=== PATIENT | male | born 1950 | race Caucasian/White ===

== ENCOUNTER 2017-11-09 05:37 | Observation (INO) | payer OTHER ==
[2017-11-09] MEDS ORDERED: NS 500 ML IV ONE (05:44)
--- NOTE | 2017-11-09 05:45 | EDPHY ---
H & P HPI/ROS: HPI CHIEF COMPLAINT: Shortness of breath, chest discomfort, fatigue with exertion HISTORY OF PRESENT ILLNESS: This patient very pleasant 67-year-old male, he is otherwise healthy, does not take blood pressure medication he presents emergency room with complaints of when he exerts himself he gets fatigued very easily and shortness of breath and sometimes gets bilateral shoulder discomfort. 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 He flies monthly back and forth. He typically works there for 3 weeks and then has a to 9 days off here in the [place] in resides in [place]. He noticed while he was over injury pain hand that at times when he would exert himself you become fatigued early, shortness of breath, and sometimes gets bilateral shoulder discomfort no real chest pain. He reports to me that during a shift in the emergency room in [facility] he went outside to run for 5 min and then came back in to immediately get an EKG. When he did this EKG was very abnormal with significant ST depression in V3 V4 V5 and V6. Additionally T-wave inversions were seen in lead to 3 and AVF. He was able to produce this EKG. The EKG was dated 10/31/2017 at 2:22 p.m.. This was his EKG done in [place] in his emergency room. He decided come the emergency room as he want to have evaluation for his abnormal EKG and easily fatigued with exertion. Upon arrival to the emergency room he has no chest pain or shortness of breath and has no complaints. Past Medical History: Denies medical history, he does take a statin. And recently over the last few days he has been taking baby aspirin. 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 Denies daily use drugs alcohol tobacco Family History: Denies pertinent family history ROS REVIEW OF SYSTEMS: A comprehensive 10 point review of systems is otherwise negative aside from elements mentioned in the history of present illness. Exam Constitutional appears well nontoxic, triage nursing summary reviewed, vital signs reviewed, awake/alert. Eyes normal conjunctivae and sclera, EOMI, PERRLA. HENT normal inspection, atraumatic, moist mucus membranes, no epistaxis, neck supple/ no meningismus, no raccoon eyes. Respiratory clear to auscultation bilaterally, normal breath sounds, no respiratory distress, no wheezing. Cardiovascular rate normal, regular rhythm, no murmur, no edema, distal pulses normal. Gastrointestinal soft, non-tender, no rebound, no guarding, normal bowel sounds, no distension, no pulsatile mass. Genitourinary no CVA tenderness. Musculoskeletal no midline vertebral tenderness, full range of motion, no calf swelling, no tenderness of extremities, no meningismus, good pulses, neurovascularly intact. Skin pink, warm, & dry, no rash, skin atraumatic. Neurologic awake, alert and oriented x 3, AAOx3, moves all 4 extremities equally, motor intact, sensory intact, CN II-XII intact, normal cerebellar, normal vision, normal speech. Psychiatric normal mood/affect. Heme/Lymph/Immune no lymphadenopathy. 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 Re-evaluation: Patient be given full-dose aspirin here. EKG interpretation by me on record in [facility] system. Impression time of EKG 5:49 a.m., this is sinus rhythm rate of [address] depression or ST elevation. No significant T-wave abnormalities. Unremarkable resting EKG. ED x-ray chest one view: Negative for acute cardiopulmonary disease. 0642: This patient's troponin is negative. D-dimer is negative. EKG is nonischemic. Patient receive full-dose aspirin. Patient be admitted to the hospitalist service for further evaluation and for cardiology to be consulted. Source: Patient Constitutional: Initial Vital Signs Heart Rate 66 11/09/17 05:40 Respiratory Rate 18 11/09/17 05:40 O2 Sat (%) 97 11/09/17 05:40 O2 Delivery Mode Room Air Allergies/Adverse Reactions: No Known Allergies Allergy (Unverified 11/09/17 05:56) Home Medications: Medication Instructions Recorded Aspirin [Aspirin 81mg (*)] 81 mg PO DAILY 11/09/17 Atorvastatin Calcium [Lipitor 10 10 mg PO DAILY 11/09/17 mg (*)] Multivitamins [Multivitamin (*)] 1 each PO DAILY 11/09/17 Zolpidem Tartrate [Ambien 10 mg] 10 mg PO HS PRN 11/09/17 Medical Decision Making - Diagnostics Imaging Results: Imaging Impressions Chest X-Ray 11/09/17 05:44 Impression: No acute findings in the chest. - Data Points Laboratory Results: Laboratory Results 11/09/17 05:45 11/09/17 05:45 Medications Given: Carvedilol (Coreg) 3.125 mg PO BIDMEAL MONICA Stop: 05/08/18 17:59 Last Admin: 11/09/17 17:16 Dose: 3.125 mg Ondansetron HCl (Zofran Odt) 4 mg PO Q4HRS PRN PRN Reason: Nausea/Vomiting, Use 1st Stop: 05/08/18 12:21 Last Admin: 11/09/17 18:27 Dose: 4 mg Discontinued Medications Aspirin Buffered (Aspirin Ec) 325 mg PO EDNOW ONE Stop: 11/09/17 06:01 Last Admin: 11/09/17 06:04 Dose: 325 mg Diazepam (Valium) 5 mg PO ONCALL ONE Stop: 11/09/17 13:14 Last Admin: 11/09/17 13:22 Dose: 5 mg Diphenhydramine HCl (Benadryl) 25 mg PO ONCALL ONE Stop: 11/09/17 13:14 Last Admin: 11/09/17 13:22 Dose: 25 mg Famotidine (Pepcid) 20 mg PO ONCALL ONE Stop: 11/09/17 13:14 Last Admin: 11/09/17 13:22 Dose: 20 mg Sodium Chloride (Ns) 500 mls @ 1,000 mls/hr IV EDNOW ONE PRN Reason: Protocol Stop: 11/09/17 06:13 Last Admin: 11/09/17 06:03 Dose: 1,000 mls Sodium Chloride (Ns) 1,000 mls @ 0 mls/hr IV ONCALL ONE PRN Reason: TKO Stop: 11/09/17 13:14 Last Admin: 11/09/17 16:29 Dose: Not Given Ticagrelor (Brilinta) 180 mg PO ONCE ONE Stop: 11/09/17 14:35 Last Admin: 11/09/17 15:14 Dose: Not Given Departure - Departure Disposition: [facility] Acute Clinical Impression: Abnormal EKG, MILLIGAN (dyspnea on exertion) Condition: Fair
--- NOTE | 2017-11-09 05:51 | CPEKG ---
Heart Rate: 62 RR Interval: 968 P-R Interval: 156 QRSD Interval: 86 QT Interval: 428 QTC Interval: 435 P [place]: 76 QRS [place]: 34 T Wave [place]: 38 EKG Severity - NORMAL ECG - EKG Impression: SINUS RHYTHM Electronically Signed By: Payal Barnhart 11-Nov-2017 22:42:20
[2017-11-09 05:56] LABS: PLATELET COUNT 207 10^3/uL (150-400)
[2017-11-09] MEDS ORDERED: ASPIRIN EC 325 MG TAB PO ONE (06:00)
[2017-11-09] MEDS ORDERED: ASPIRIN 81 MG CHEWABLE TAB ONE (06:03)
[2017-11-09 06:05] LABS: CREATINE KINASE 86 IU/L (0-224); INR 0.95 (0.83-1.16); PROTIME(PATIENT) 12.9 SEC (12.0-15.0)
--- NOTE | 2017-11-09 10:49 | ASMTCMCOM ---
CM Note CM Note Notes: 11/09/2017 Case Management Note Reviewed chart. There are no case management d/c needs identified d/t pt age, marital status, employment status and activity levels prior to admission. There are no PT or OT evals ordered at this time. Case Management d/c poc: anticipating independent with follow up as directed. Case Management available if needs change. Date Signed: 11/09/2017 10:49 AM Electronically Signed By:Tg Montero RN
[2017-11-09] MEDS ORDERED: ACETAMINOPHEN 325 MG TAB PO PRN (12:22)
[2017-11-09] MEDS ORDERED: LORazepam 0.5 MG TAB PO PRN (12:22)
[2017-11-09] MEDS ORDERED: ONDANSETRON 4 MG/2 ML VIAL IVP PRN (12:22)
[2017-11-09] MEDS ORDERED: ONDANSETRON DISINTEGRATING 4 MG TAB PO PRN (12:22)
[2017-11-09] MEDS ORDERED: NON-FORMULARY NEW DRUG (Zolpidem Tartrate [Ambien 10 Mg] 10 MG) PO PRN (12:24)
[2017-11-09] MEDS ORDERED: ZOLPIDEM TARTRATE 5 MG TAB PO PRN (12:28)
--- NOTE | 2017-11-09 12:42 | PDPROPOC ---
Sedation Plan of Care Sedation Plan of Care: vital signs stable, mental status noted, patient educated of risks, benefits, alternatives, patient can tolerate sedation ASA Classification: ASA 2 Planned drugs: fentanyl, midazolam Mallampati Score: Class 1 Mallampati Reference Image: Patient passed 3-3-2 rule?: Yes
--- NOTE | 2017-11-09 12:43 | PDHPUP ---
History & Physical Update H&P update statement: This history and physical update is based on an assessment of the patient which was completed after admission or registration (within 24 hours), but prior to the surgery/procedure. H&P update: H&P reviewed & patient examined, no change in patient's condition since H&P completed
[2017-11-09] MEDS ORDERED: diphenhydrAMINE 25 MG CAP PO ONE ×2 (12:56→13:13)
[2017-11-09] MEDS ORDERED: FAMOTIDINE 20 MG TAB ONE (12:56)
[2017-11-09] MEDS ORDERED: DIAZEPAM 5 MG TAB ONE (12:57)
[2017-11-09] MEDS ORDERED: MIDAZOLAM 2 MG/2 ML VIAL ONE ×2 (13:07→14:01)
[2017-11-09] MEDS ORDERED: fentaNYL 100 MCG/2 ML INJ ONE ×2 (13:07→14:01)
[2017-11-09] MEDS ORDERED: LIDOCAINE 1% 300 MG/30 ML SDV ONE (13:07)
[2017-11-09] MEDS ORDERED: IOPAMIDOL (ISOVUE-370) 150 ML BTL IV ONE ×2 (13:07→13:51)
[2017-11-09] MEDS ORDERED: FAMOTIDINE 20 MG TAB PO ONE (13:13)
[2017-11-09] MEDS ORDERED: DIAZEPAM 5 MG TAB PO ONE (13:13)
[2017-11-09] MEDS ORDERED: NS 1,000 ML IV ONE (13:13)
[2017-11-09] MEDS ORDERED: NITROGLYCERIN 1,500 MCG/15 ML VIAL MISC ONE (13:48)
[2017-11-09] MEDS ORDERED: BIVALIRUDIN 250 MG/5 ML VIAL IV ONE (13:48)
[2017-11-09] MEDS ORDERED: TICAGRELOR 90 MG TAB ONE (14:10)
[2017-11-09] MEDS ORDERED: NITROGLYCERIN 0.4 MG BTL SL PRN (14:34)
[2017-11-09] MEDS ORDERED: TEMAZEPAM 15 MG CAP PO PRN (14:34)
[2017-11-09] MEDS ORDERED: HYDROCODONE/APAP 5/325 TAB PO PRN (14:34)
[2017-11-09] MEDS ORDERED: TICAGRELOR 90 MG TAB PO ONE (14:34)
[2017-11-09] MEDS ORDERED: ATROPINE SULFATE 1 MG/10 ML SYR IVP PRN (14:34)
[2017-11-09] MEDS ORDERED: OXYCODONE/APAP 5/325 TAB PO PRN (14:34)
--- NOTE | 2017-11-09 14:49 | CPEKG ---
Heart Rate: 50 RR Interval: 1200 P-R Interval: 160 QRSD Interval: 86 QT Interval: 476 QTC Interval: 435 P [place]: 69 QRS [place]: 21 T Wave [place]: 9 EKG Severity - NORMAL ECG - EKG Impression: SINUS RHYTHM Electronically Signed By: Mario Pérez 11-Nov-2017 13:03:13
--- NOTE | 2017-11-09 14:59 | CPIP ---
[f rep st] INVASIVE CARDIAC PROCEDURE DATE OF PROCEDURE: 11/09/2017 PROCEDURE: 1. Coronary angiography. 2. Left ventriculography. 3. Percutaneous coronary intervention of the left anterior descending coronary artery using Synergy drug-eluting stent. INDICATION: Crescendo angina. ACCESS: Patient was prepped and draped in the sterile fashion. 1% lidocaine was used to anesthetize the right inguinal region. A 6-Marshallese introducer sheath was placed selectively into the right commo n femoral artery via modified Seldinger technique. CORONARY ANGIOGRAPHY: A 6-Marshallese JL4 was advanced through the left main coronary artery and images o btained. The left main coronary artery bifurcated into an LAD and circumflex coronary arteries. The left main coronary artery appeared normal. The left anterior descending coronary artery gave rise t o three prominent diagonal branches. The left anterior descending coronary artery was diffusely dise ased. In the mid one segment of the vessel, there was a discreet 85% stenosis present. In the mid t wo segment of the vessel, there was a 30% to 40% stenosis present and in the distal vessel there is a 40% stenosis present. The diagonal arteries were free of any significant disease. The circumflex c oronary artery was nondominant. Circumflex coronary artery had a sequential 20% stenosis in the mid vessel. The circumflex coronary artery gave rise to two OM branches. The OM branches were free of a ny significant disease. A 6-Marshallese JR4 was advanced to the right coronary artery and images obtained . The right coronary artery is dominant. The right coronary artery had a mid 20% stenosis present. LEFT VENTRICULOGRAPHY: A 6-Marshallese pigtail catheter was advanced into the left ventricle and images o btained. Left ventricle was normal size and had normal systolic function with an estimated ejection fraction of 60%. COMPLICATIONS: None. CONCLUSIONS: 1. Single-vessel coronary artery disease involving the left anterior descending coronary artery. 2. Normal left ventricular systolic function. 3. Status post successful percutaneous coronary intervention of the left anterior descending coronar y artery using Synergy drug-eluting stents. /[id number]/MODL
--- NOTE | 2017-11-09 15:54 | GCON ---
[f rep st] CONSULTATION DATE OF CONSULTATION: 11/09/2017 CHIEF COMPLAINT: We have been asked by Dr. Storey to evaluate this patient with a chief complaint of chest pain. HISTORY OF PRESENT ILLNESS: The patient is a 67-year-old gentleman with coronary artery disease by c oronary artery calcium scoring, who presents with a chief complaint of chest pain. Patient was in hi s usual state of health until 3-4 weeks prior to admission, when he began to experience symptoms of p alpitations while exercising. Patient also noted a fairly significant decline in his exercise capaci ty and began to experience some mild discomfort in his shoulders bilaterally. 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 Patient has held off on his physical a ctivity since this time, and he presents for further evaluation. Patient currently denies symptoms o f chest pain as well as orthopnea and PND. He does report palpitations described as a skipped beat w hile exercising. The palpitations are not associated with symptoms of syncope or presyncope. PAST MEDICAL HISTORY: 1. Coronary artery disease by coronary artery calcium scoring. 2. Hyperlipidemia. MEDICATIONS: 1. Aspirin. 2. Atorvastatin. ALLERGIES: No known drug allergies. 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 He does not smoke an d denies problems with alcohol. FAMILY HISTORY: Noncontributory. REVIEW OF SYSTEMS: 10-point review of systems is negative, except as noted in the HPI. PHYSICAL EXAMINATION: GENERAL: Patient is resting comfortably in his bed. He does not appear to be in acute distress. VITAL SIGNS: Temperature is afebrile. Pulse 50, blood pressure 121/80, respira tory rate 16, SaO2 92% on room air. HEENT: Normocephalic, atraumatic. Extraocular muscles intact. NECK: No JVD. No bruits. LUNGS: Clear to auscultation bilaterally. CARDIOVASCULAR: Regular rat e and rhythm. S1, S2. No murmurs, rubs, or gallops appreciated. ABDOMEN: Soft, nontender. No hep atosplenomegaly. EXTREMITIES: No clubbing, cyanosis, or edema. SKIN: No evidence of rashes. NEUR O: Patient is awake, alert, and oriented x3. LABORATORY: White blood cell count is 6.84, hemoglobin 16.7, hematocrit 49.8, platelet count 207. S odium 146, potassium 4.3, chloride 104, CO2 28, BUN 20, creatinine 1.3. Troponin within normal limit s x1. D-dimer 0.43. INR 0.95. EKG demonstrates sinus rhythm, normal axis, and normal intervals. No acute ST or T-wave changes. ASSESSMENT AND PLAN: The patient is a 67-year-old gentleman with known coronary artery disease by co ronary artery calcium scoring, who presents with exertional dyspnea and shoulder discomfort concernin g for angina. His current EKG demonstrates no acute ST or T-wave changes. His initial troponin is w ithin normal limits. Reviewed options for risk stratification, including cardiac catheterization and stress testing. The patient wishes to pursue cardiac catheterization. Risks and benefits discussed . Will arrange to have this performed. /[id number]/MODL
[2017-11-09] MEDS: CARVEDILOL 3.125 MG TAB PO SCH (17:16)
[2017-11-10] MEDS: TICAGRELOR 90 MG TAB PO SCH ×2 (04:06→07:54)
[2017-11-10 04:50] VITALS: O2SAT 90
[2017-11-10 05:16] LABS: PLATELET COUNT 179 10^3/uL (150-400)
[2017-11-10] MEDS: CARVEDILOL 3.125 MG TAB PO SCH (07:54)
[2017-11-10] MEDS ORDERED: MULTIVITAMINS 1 EACH TAB PO SCH (09:00)
[2017-11-10] MEDS ORDERED: ASPIRIN EC 81 MG TAB PO SCH (09:00)
[2017-11-10] MEDS ORDERED: ASPIRIN 81 MG CHEWABLE TAB PO SCH (09:00)
[2017-11-10] MEDS ORDERED: ATORVASTATIN CALCIUM 10 MG TAB PO SCH (09:00)
--- NOTE | 2017-11-10 09:25 | CPEKG ---
Heart Rate: 64 RR Interval: 938 P-R Interval: 148 QRSD Interval: 86 QT Interval: 392 QTC Interval: 405 P [place]: 58 QRS [place]: 9 T Wave [place]: -7 EKG Severity - BORDERLINE ECG - EKG Impression: SINUS RHYTHM EKG Impression: BORDERLINE T ABNORMALITIES, INFERIOR LEADS Electronically Signed By: Mario Pérez 11-Nov-2017 13:03:06
[2017-11-10 12:19] VITALS: BP 122/82; PULSE 55; RESP 15; TEMP 98.2
--- NOTE | 2017-11-10 12:36 | SOAPPROG ---
[facility] Progress Note Assessment/Plan: 1. CAD - Pt presented with crescendo angina. Angiogram with 1VD and normal LVEF. Pt treated with PCI of mid LAD using synergy MARLO. Pt denies symptoms of angina and CHF. Ambulating with out difficulty. --> asa, brilinta, coreg, lisinopril, and lipitor --> Limited activity for 5 days --> F/u Dr. Leonard 2. HTN - Pts SBP is mildly elevated in the 110s to 150s --> Start lisinopril 5 mg daily 3. Hyperlipidemia - Pts LDL is 88 on intermittent lipitor 10 mg daily. --> Start scheduled lipitor 80 mg daily 4. Hematuria - Please see Dr. Storey's note. 11/10/17 12:36 Subjective: No chest pain No orthopnea or PND ambulating with out difficulty + hematuria last pm Objective: Vital Signs Temp Pulse Resp BP Pulse Ox 36.8 C 55 L 15 122/82 H 90 L 11/10/17 12:17 11/10/17 12:17 11/10/17 12:17 11/10/17 12:17 11/10/17 12:17 Laboratory Results 11/10/17 04:10 11/10/17 04:10 11/09/17 11/10/17 11/11/17 05:59 05:59 05:59 Intake Total 2080 Output Total 1225 Balance 855 PT 12.9 SEC (12.0-15.0) 11/09/17 05:45 INR 0.95 (0.83-1.16) 11/09/17 05:45 Physical Exam - Physical Exam General Appearance: alert, no apparent distress Respiratory: lungs clear Cardiac/Chest: regular rate, rhythm Extremities: other (No hematoma. + echymosis.), No pedal edema Neuro/Psych: alert, oriented x 3 ICD10 Worksheet Patient Problems: Problems Problem Status Onset Abnormal EKG Acute MILLIGAN (dyspnea on exertion) Acute
--- NOTE | 2017-11-10 12:55 | PDDCSUM ---
Discharge Summary Discharge Summary: DISCHARGE DIAGNOSES: -unstable angina pectoralis -coronary artery disease with 80+% stenosis of left anterior descending and mild disease elsewhere -stenting of the left anterior descending coronary disease, successful without complication -episode of gross hematuria following placement of coronary stent, likely related to anti-platelet and anticoagulant medications -hyperlipidemia -uncontrolled hypertension -left foot pain CONSULTANTS: Dr. 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 The symptoms are new in the last 2 weeks, always brought on by exertion, or is relieved by rest rapidly, and have increased in frequency and severity during the 2 weeks. He came into the ER where he had no heart failure, sinus rhythm, normal EKG and troponin. Is taken to the coronary angiography laboratory where he had a 80+% lesion of the left anterior descending which was successfully stented with a drug-eluting stent. Excellent flow after stent placement and no complications during the procedure. He did have some hematuria that lasted a few hours after the procedure without any pain and without any difficulty voiding his bladder. See below The patient has done well for cardiac standpoint since and he is stable for discharge from the hospital at this point. His LDL cholesterol was at 88 so his Lipitor was increased from 10-40 mg. His blood pressures have been a bit on the high side with systolics in the 150s and occasional high diastolic. Therefore he is started on Coreg and lisinopril as well. 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 He will follow up with Dr. Leonard in clinic in the next week. Due to the gross hematuria we did do a retroperitoneal ultrasound which showed no lesions of the kidneys or ureters. There is some mild thickening of part of the bladder wall which was nonspecific but felt to warrant further assessment with the urologist. I have recommended that the patient make an appointment to see urologist and I have given him the names and numbers of the local physicians in this community. He also mentioned a sharp pain below the left lateral malleolus in his foot that has been present intermittently over the last 2 months. It was not caused any injury that he is aware of, but it does give him quite a bit of pain at times with walking or jogging and makes him stop. Examination of his foot was unremarkable. An x-ray of the foot is ordered to look for any kind of foreign body or possible stress fracture or other issue. He is preferring to do this as an outpatient so he will do this tomorrow. I have asked for a copy of the report to be sent to me and to his primary care physician Dr. Ha. PENDING TEST RESULTS: X-ray of the left foot MEDICATION CHANGES: Increase in the toward 40 mg daily Addition of Brilinta twice Daily Addition of Coreg 6.25 mg twice daily Addition of lisinopril 5 mg daily FOLLOW-UP PLAN: -with Dr. Leonard and Cardiology Clinic next week -with Dr. Ha at some point in the next 4-6 weeks -he will make point with 1 of the local urologists to review his hematuria and ultrasound findings The is given a copy of his ultrasound fine sinus Greater than 35 minutes bedside and care coordination time today
--- NOTE | 2017-11-10 12:58 | ASMTLACE ---
MATILDA Length of stay for Answers: 1 day current admission Acuity / Level of Answers: No Care: Did the patient have an inpatient admission? Comorbidities - select Answers: Other all that apply # of Emergency department Answers: 0 visits in the last 6 months Score: 2 Date Signed: 11/10/2017 12:57 PM Electronically Signed By:Tg Montero RN
--- NOTE | 2017-11-10 16:37 | ASDISCHSUM ---
Discharge Information Plan Status:Home with No Needs Medically Cleared to Leave:11/09/2017 Discharge Date:11/10/2017 01:46 PM CM D/C Disposition:Home, Routine, Self-Care ADT D/C Disposition:Home, Routine, Self-Care Projected Discharge Date:11/10/2017 01:46 PM Transportation at D/C:Self Discharge Delay Reason: Follow-Up Date:11/10/2017 01:46 PM Discharge Slot: Final Diagnosis: Placement Information Patient Contact Information Contact Name:JACQUELYN Relationship:Friend Address: Work Phone: City: [facility] Phone: [facility]/Zip Code: Email: Financial Information Financial Class:Medicare Advantage Plans Primary Plan Desc:[facility] [employer] PLANS Primary Plan Number:[id number] Secondary Plan Desc: Secondary Plan Number: Assessment Information [facility] CM Progress Note CM Note CM Note Notes: 11/09/2017 Case Management Note Reviewed chart. There are no case management d/c needs identified d/t pt age, marital status, employment status and activity levels prior to admission. There are no PT or OT evals ordered at this time. Case Management d/c poc: anticipating independent with follow up as directed. Case Management available if needs change. Date Signed: 11/09/2017 10:49 AM Electronically Signed By:Tg Montero RN LACE LACE Length of stay for Answers: 1 day current admission Acuity / Level of Answers: No Care: Did the patient have an inpatient admission? Comorbidities - select Answers: Other all that apply # of Emergency department Answers: 0 visits in the last 6 months Score: 2 Date Signed: 11/10/2017 12:57 PM Electronically Signed By:Tg Montero RN Intervention Information Intervention Type:*MILLER-Signed Date of Service:11/10/2017 09:56 AM Patient Type:Observation Staff Member:Saadia Vivar Hours: Discipline: Severity: Comment:
[2017-11-11] MEDS ORDERED: LISINOPRIL 5 MG TAB PO SCH (09:00)
[2017-11-11] MEDS ORDERED: ATORVASTATIN CALCIUM 40 MG TAB PO SCH (09:00)
== END 2017-11-10 13:46 | disposition home or self-care (01) ==
LOC: INTOOBSV 06:41 → F2W 08:10
PROVIDERS: ADMIT Family Medicine; ATTEND Internal Medicine
PROC: B2111ZZ Fluoroscopy of Multiple Coronary Arteries using Low Osmolar Contrast (ICD-10-PCS; principal; 2017-11-09)
PROC: 027034Z Dilation of Coronary Artery, One Artery with Drug-eluting Intraluminal Device, Percutaneous Approach (ICD-10-PCS; principal; 2017-11-09)
PROC: 4A023N7 Measurement of Cardiac Sampling and Pressure, Left Heart, Percutaneous Approach (ICD-10-PCS; principal; 2017-11-09)
PROC: B2151ZZ Fluoroscopy of Left Heart using Low Osmolar Contrast (ICD-10-PCS; principal; 2017-11-09)
DX: I25.110 Atherosclerotic heart disease of native coronary artery with unstable angina pectoris (principal); R31.0 Gross hematuria; I10 Essential (primary) hypertension; M79.672 Pain in left foot; R06.09 Other forms of dyspnea; R94.31 Abnormal electrocardiogram [ECG] [EKG]; E78.5 Hyperlipidemia, unspecified; Z79.82 Long term (current) use of aspirin
CPT/HCPCS: 71045; 76770; 93005; 93458; 99285; C1725; C1760; C1769; C1874; C1887; C9600; G0378; J0583; J1644; J2250; J3010; Q9967

== ENCOUNTER → 2017-11-12 | Outpatient (CLI) | payer OTHER | LOC: FIMAGING 12:50 | PROVIDERS: ATTEND Internal Medicine | DX: M79.672 Pain in left foot (principal) ==

== ENCOUNTER → 2019-01-10 | Outpatient (CLI) | payer OTHER | LOC: FIMAGING 14:15 | PROVIDERS: ATTEND Internal Medicine | DX: J32.8 Other chronic sinusitis (principal); J34.2 Deviated nasal septum ==